=== PATIENT | female | born 1975 | race Caucasian/White ===

== ENCOUNTER 2018-01-30 12:41 | Day surgery (SDC) | payer OTHER ==
[2018-01-30] MEDS ORDERED: LIDOCAINE 4% SOLUTION 50 ML BTL (14:47)
[2018-01-30] MEDS ORDERED: DIPHENHYDRAMINE 50 MG INJ ×2 (15:48→16:35)
[2018-01-30] MEDS ORDERED: MIDAZOLAM 1 MG/ML 2 ML INJ ×4 (16:22)
[2018-01-30] MEDS ORDERED: FENTAnyl 50 MCG/ML VIAL ×2 (16:23)
== END 2018-01-30 19:30 | disposition home or self-care (01) ==
LOC: GIL 12:41
DX: Z12.11 Encounter for screening for malignant neoplasm of colon (principal); R19.7 Diarrhea, unspecified; K29.80 Duodenitis without bleeding; K25.3 Acute gastric ulcer without hemorrhage or perforation
CPT/HCPCS: 43239; 88305